=== PATIENT | female | born 1985 | race African-American/Black ===

== ENCOUNTER 2017-08-01 23:30 | Emergency (ER) | payer SELFPAY ==
[2017-08-01 23:53] LABS: ADD MAN DIFF? NO
[2017-08-01 23:55] LABS: BASO # 0.1 x10^3/uL (0.0-0.2); BASO % 1 % (0-3); EOS # 0.2 x10^3/uL (0.0-0.7); EOS % 2 % (0-3); HEMOGLOBIN 11.8 g/dL (12.0-15.5); LYMPH % 35 % (24-48); MEAN CORPUSCULAR HEMOGLOBIN 25 pg (25-35); MEAN CORPUSCULAR HGB CONC 33 g/dL (31-37); MEAN CORPUSCULAR VOLUME 76 fL (79-100); MONO # 0.7 x10^3/uL (0.0-1.1); MONO % 7 % (0-9); NEUT # 6.5 x10^3uL (1.8-7.7); NEUT % 56 % (31-73); PLATELET COUNT 412 x10^3/uL (140-400); RED BLOOD COUNT 4.75 x10^6/uL (3.50-5.40); RED CELL DISTRIBUTION WIDTH 15.8 % (11.5-14.5); WHITE BLOOD COUNT 11.5 x10^3/uL (4.0-11.0)
[2017-08-02 00:04] LABS: ANION GAP 12 (6-14); BLOOD UREA NITROGEN 11 mg/dL (7-20); CALCIUM 8.9 mg/dL (8.5-10.1); CARBON DIOXIDE 24 mmol/L (21-32); CHLORIDE 103 mmol/L (98-107); CREATININE 0.7 mg/dL (0.6-1.0); GFR 117.3; GLUCOSE 94 mg/dL (70-99); SODIUM 139 mmol/L (136-145)
[2017-08-02 00:09] LABS: D-DIMER < 0.27 ug/mlFEU (0.00-0.50)
[2017-08-02] MEDS: IV NORMAL SALINE 1000ML BAG 1,000 ML IV (00:12)
[2017-08-02 00:13] LABS: POTASSIUM 2.9 mmol/L (3.5-5.1)
[2017-08-02 00:15] LABS: TROPONINI < 0.017 ng/mL (0.000-0.055)
[2017-08-02] MEDS: POTASSIUM CHLORIDE 20 MEQ TABLET.ER. PO (00:35)
== END 2017-08-02 03:15 | disposition home or self-care (01) ==
LOC: ER 08-02 03:15
DX: F41.9 Anxiety disorder, unspecified (principal); I10 Essential (primary) hypertension; F12.10 Cannabis abuse, uncomplicated; Z88.6 Allergy status to analgesic agent
CPT/HCPCS: 36415; 80048; 84484; 85025; 85379; 93005; 96374; 99285-25; J2060; J7030

== ENCOUNTER 2018-05-12 21:49 | Emergency (ER) | payer OTHER ==
[~2018-05-12] VITALS: Ht 162.6 cm; Wt 113.4 kg
[~2018-05-12 21:49] MED LIST: HYDR25TA PO; LISI1TAB3 PO
[2018-05-12 22:00] VITALS: BP 174/109
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
== END 2018-05-13 | disposition home or self-care (01) ==
LOC: ER 21:49
DX: M54.5 Low back pain (principal); M79.642 Pain in left hand; Z88.8 Allergy status to other drugs, medicaments and biological substances; V43.52XA Car driver injured in collision with other type car in traffic accident, initial encounter; Y93.89 Activity, other specified; Y92.410 Unspecified street and highway as the place of occurrence of the external cause; Y99.8 Other external cause status
CPT/HCPCS: 72100; 73130; 99283

== ENCOUNTER 2021-01-14 14:13 | Emergency (ER) | payer SELFPAY ==
[~2021-01-14] VITALS: Ht 162.6 cm; Wt 136.3 kg
[~2021-01-14 14:13] MED LIST changes: -LISI1TAB3 PO; +LISI1TAB35 PO
--- NOTE | 2021-01-14 15:00 | PHYS DOC ---
Past Medical History Past Medical History: No Pertinent History Additional Past Medical Histor: FIBROIDS Past Surgical History: Other Additional Past Surgical Histo: Ovarian cyst removed Smoking Status: Never Smoker Alcohol Use: Occasionally Drug Use: None General Adult EDM: Chief Complaint: ABDOMINAL PAIN HPI: HPI: Patient is a 35-year-old female that presents today with right upper right mi ddle abdominal pain for 1 week. Patient also states that over the weekend she had bouts of nausea and heartburn and had one episode of vomiting. Patient states that over the week she has had more increased pain in the upper abdomen area mostly on the middle, she states in the past she has had history of heartburn is treated that with [id number] Tums, but today she states ate a meal. Patient states that today after her meal she had a bowel movement with very loose and she had upper abdominal pain related to it. Review of Systems: Review of Systems: Constitutional: Denies fever or chills. [] Eyes: Denies change in visual acuity. [] HENT: Denies nasal congestion or sore throat. [] Respiratory: Denies cough or shortness of breath. [] Cardiovascular: Denies chest pain or edema. [] GI: upper abdominal pain, nausea, vomiting x1, hearburn or diarrhea. [] : Denies dysuria. [] Musculoskeletal: Denies back pain or joint pain. [] Integument: Denies rash. [] Neurologic: Denies headache, focal weakness or sensory changes. [] Endocrine: Denies polyuria or polydipsia. [] Lymphatic: Denies swollen glands. [] Psychiatric: Denies depression or anxiety. [] Heart Score: C/O Chest Pain: N/A Risk Factors: Risk Factors: DM, Current or recent (<one month) smoker, HTN, HLP, family history of CAD, obesity. Risk Scores: Score 0 - 3: 2.5% MACE over next 6 weeks - Discharge Home Score 4 - 6: 20.3% MACE over next 6 weeks - Admit for Clinical Observation Score 7 - 10: 72.7% MACE over next 6 weeks - Early Invasive Strategies Allergies: Allergies: Allergies Coded Allergies Type Severity Reaction Last Updated Verified NSAIDS (Non-Steroidal Anti-Inflamma Allergy Unknown 11/08/13 No Physical Exam: PE: Constitutional: Well developed, well nourished, no acute distress, non-toxic appearance. [] HENT: Normocephalic, atraumatic, bilateral external ears normal, oropharynx moist, no oral exudates, nose normal. [] Eyes: PERRLA, EOMI, conjunctiva normal, no discharge. [] Neck: Normal range of motion, no tenderness, supple, no stridor. [] Cardiovascular:Heart rate regular rhythm, no murmur [] Lungs & Thorax: Bilateral breath sounds clear to auscultation [] Abdomen: Abdomen soft, tenderness noted in right upper quadrant, middle and left upper quadrant of the abdomen. Bowel sounds active in all 4 quadrants, Skin: Warm, dry, no erythema, no rash. [] Back: No tenderness, no CVA tenderness. [] Extremities: No tenderness, no cyanosis, no clubbing, ROM intact, no edema. [] Neurologic: Alert and oriented X 3, normal motor function, normal sensory function, no focal deficits noted. [] Psychologic: Affect normal, judgement normal, mood normal. [] Current Patient Data: Labs: Laboratory Tests Test 01/14/21 14:50 01/14/21 16:05 White Blood Count 9.1 x10^3/uL Red Blood Count 4.81 x10^6/uL Hemoglobin 11.2 g/dL Hematocrit 35.4 % Mean Corpuscular Volume 74 fL Mean Corpuscular Hemoglobin 23 pg Mean Corpuscular Hemoglobin Concent 32 g/dL Red Cell Distribution Width 17.4 % Platelet Count 379 x10^3/uL Neutrophils (%) (Auto) 63 % Lymphocytes (%) (Auto) 29 % Monocytes (%) (Auto) 5 % Eosinophils (%) (Auto) 2 % Basophils (%) (Auto) 1 % Neutrophils # (Auto) 5.7 x10^3/uL Lymphocytes # (Auto) 2.6 x10^3/uL Monocytes # (Auto) 0.5 x10^3/uL Eosinophils # (Auto) 0.2 x10^3/uL Basophils # (Auto) 0.1 x10^3/uL Sodium Level 139 mmol/L Potassium Level 3.8 mmol/L Chloride Level 103 mmol/L Carbon Dioxide Level 27 mmol/L Anion Gap 9 Blood Urea Nitrogen 9 mg/dL Creatinine 0.7 mg/dL Estimated GFR (Cockcroft-Gault) 115.2 BUN/Creatinine Ratio 13 Glucose Level 91 mg/dL Calcium Level 8.5 mg/dL Total Bilirubin 0.5 mg/dL Aspartate Amino Transf (AST/SGOT) 8 U/L Alanine Aminotransferase (ALT/SGPT) 16 U/L Alkaline Phosphatase 68 U/L Total Protein 7.1 g/dL Albumin 3.3 g/dL Albumin/Globulin Ratio 0.9 Lipase 58 U/L Serum Test, Qualitative Negative Urine Collection Type Unknown Urine Color Yellow Urine Clarity Clear Urine pH 7.0 Urine Specific [place] 1.020 Urine Protein Negative mg/dL Urine Glucose (UA) Negative mg/dL Urine Ketones (Stick) Negative mg/dL Urine Blood Negative Urine Nitrite Negative Urine Bilirubin Negative Urine Urobilinogen Dipstick 1.0 mg/dL Urine Leukocyte Esterase Small Urine RBC 0 /HPF Urine WBC 1-4 /HPF Urine Squamous Epithelial Cells Mod /LPF Urine Bacteria Few /HPF Urine Mucus Slight /LPF Vital Signs: Vital Signs Date Time Temp Pulse Resp B/P (MAP) Pulse Ox O2 Delivery O2 Flow Rate FiO2 01/14/21 14:16 98.8 83 18 193/94 (127) 99 Room Air 98.8 EKG: EKG: [] Radiology/Procedures: Radiology/Procedures: REASON: upper abdominal pain PROCEDURE: ABDOMEN COMPLETE EXAMINATION: US ABDOMEN COMPLETE INDICATION: 35 years, Female, upper abdominal pain. COMPARISON: None TECHNIQUE: Grayscale, color Doppler and limited spectral Doppler images of the abdomen were obtained. FINDINGS: LIVER: SIZE (LENGTH): 18.6 cm. ECHOGENICITY: Normal. PARENCHYMA: Homogeneous echotexture. No discrete focal lesion. INTRAHEPATIC BILE DUCTS: Nondilated. PORTAL VEIN: Patent with normal hepatopedal flow. GALLBLADDER: GALLBLADDER WALL THICKNESS: 2 mm. MORPHOLOGY: Normal morphology. No pericholecystic free fluid. LUMEN: Normal. COMMON BILE DUCT DIAMETER: 6 mm. RIGHT KIDNEY: MEASURES: 12.5 cm in length. MORPHOLOGY/PARENCHYMA: Normal corticomedullary differentiation with no shadowing calculus or discrete masses. COLLECTING SYSTEM: No hydronephrosis. LEFT KIDNEY: MEASURES: 12.5 cm in length MORPHOLOGY/PARENCHYMA: Normal corticomedullary differentiation with no shadowing calculus or discrete masses. COLLECTING SYSTEM: No hydronephrosis. SPLEEN: SIZE (LENGTH): 12.2 cm PARENCHYMA: Unremarkable. PANCREAS: VISUALIZED PORTIONS: Entire. APPEARANCE: Within normal limits. OTHER: RETROPERITONEUM, INFERIOR VENA CAVA: Normal caliber. AORTA: Normal caliber measures 1.9 cm. FLUID:No free fluid. IMPRESSION: Normal abdominal ultrasound. Electronically signed by: Santiago Bell MD (01/14/2021 3:44 PM) [facility] DICTATED and SIGNED BY: SANTIAGO BELL MD DATE: 01/14/21 [id number] 0 [] Course & Med Decision Making: Course & Med Decision Making Pertinent Labs and Imaging studies reviewed. (See chart for details) 1645 spoke to patient at length regarding test results, feel this is more gastritis related and not gallbladder disease. Instructed patient to not drink alcohol avoid nonsteroidal anti-inflammatories, avoid fatty food, caffeinated beverages as well. Will order Prilosec 20 mg daily, directed patient to follow- up with primary care also given list of clinics and physicians in the area to follow-up with as well. Patient states that she needs to establish primary care she is new to the area.] Dragon Disclaimer: Dragon Disclaimer: This electronic medical record was generated, in whole or in part, using a voice recognition dictation system. Departure Departure Impression: Primary Impression: Gastritis Qualified Codes: K29.00 - Acute gastritis without bleeding Disposition: HOME / SELF CARE / HOMELESS Condition: STABLE Referrals: NO PCP (PCP) REMBERTO SCHILLING MD Patient Instructions: Gastritis, Adult Additional Instructions: Avoid alcohol, smoking, and caffeine Prilosec 20 mg once daily Follow-up with primary care physician for management of blood pressure and possible referral to a GI specialist, list has been provided of clinics and primary care physicians in the area Return to the emergency department if you notice blood in your vomit, blood in your stool, inability to swallow your own saliva, your skin becomes yellow in color or any other concerns that you may have. Scripts Omeprazole (OMEPRAZOLE) 20 Mg Tablet. 20 MG PO DAILY for GASTRITIS, #30 TAB Prov: CHRISTIANO ROSS UNIVERSITY ARCHIVIST 01/14/21 CHRISTIANO ROSS UNIVERSITY ARCHIVIST Jan 14, 2021 15:00
[2021-01-14 15:02] LABS: BASO # 0.1 x10^3/uL (0.0-0.2); BASO % 1 % (0-3); EOS # 0.2 x10^3/uL (0.0-0.7); EOS % 2 % (0-3); HEMATOCRIT 35.4 % (36.0-47.0); HEMOGLOBIN 11.2 g/dL (12.0-15.5); LYMPH # 2.6 x10^3/uL (1.0-4.8); LYMPH % 29 % (24-48); MEAN CORPUSCULAR HEMOGLOBIN 23 pg (25-35); MEAN CORPUSCULAR HGB CONC 32 g/dL (31-37); MEAN CORPUSCULAR VOLUME 74 fL (79-100); MONO # 0.5 x10^3/uL (0.0-1.1); MONO % 5 % (0-9); NEUT # 5.7 x10^3/uL (1.8-7.7); NEUT % 63 % (31-73); PLATELET COUNT 379 x10^3/uL (140-400); RED BLOOD COUNT 4.81 x10^6/uL (3.50-5.40); RED CELL DISTRIBUTION WIDTH 17.4 % (11.5-14.5); WHITE BLOOD COUNT 9.1 x10^3/uL (4.0-11.0)
[2021-01-14 15:11] LABS: PREG TEST PT QUAL NEGATIVE (NEG)
[2021-01-14 15:12] LABS: CALCIUM 8.5 mg/dL (8.5-10.1); CREATININE 0.7 mg/dL (0.6-1.0); GFR 115.2; POTASSIUM 3.8 mmol/L (3.5-5.1)
[2021-01-14 15:18] LABS: ALBUMIN 3.3 g/dL (3.4-5.0); ALBUMIN/GLOBULIN RATIO 0.9 (1.0-1.7); TOTAL BILIRUBIN 0.5 mg/dL (0.2-1.0); TOTAL PROTEIN 7.1 g/dL (6.4-8.2)
--- NOTE | 2021-01-14 15:46 | RAD ---
EXAMINATION: US ABDOMEN COMPLETE INDICATION: 35 years, Female, upper abdominal pain. COMPARISON: None TECHNIQUE: Grayscale, color Doppler and limited spectral Doppler images of the abdomen were obtained. FINDINGS: LIVER: SIZE (LENGTH): 18.6 cm. ECHOGENICITY: Normal. PARENCHYMA: Homogeneous echotexture. No discrete focal lesion. INTRAHEPATIC BILE DUCTS: Nondilated. PORTAL VEIN: Patent with normal hepatopedal flow. GALLBLADDER: GALLBLADDER WALL THICKNESS: 2 mm. MORPHOLOGY: Normal morphology. No pericholecystic free fluid. LUMEN: Normal. COMMON BILE DUCT DIAMETER: 6 mm. RIGHT KIDNEY: MEASURES: 12.5 cm in length. MORPHOLOGY/PARENCHYMA: Normal corticomedullary differentiation with no shadowing calculus or discrete masses. COLLECTING SYSTEM: No hydronephrosis. LEFT KIDNEY: MEASURES: 12.5 cm in length MORPHOLOGY/PARENCHYMA: Normal corticomedullary differentiation with no shadowing calculus or discrete masses. COLLECTING SYSTEM: No hydronephrosis. SPLEEN: SIZE (LENGTH): 12.2 cm PARENCHYMA: Unremarkable. PANCREAS: VISUALIZED PORTIONS: Entire. APPEARANCE: Within normal limits. OTHER: RETROPERITONEUM, INFERIOR VENA CAVA: Normal caliber. AORTA: Normal caliber measures 1.9 cm. FLUID:No free fluid. IMPRESSION: Normal abdominal ultrasound. Electronically signed by: Santiago Bell MD (01/14/2021 3:44 PM) [facility]
[2021-01-14 16:14] LABS: BILIRUBIN,URINE NEGATIVE (NEG); CLARITY,URINE CLEAR; COLOR,URINE YELLOW; NITRITE,URINE NEGATIVE (NEG); PROTEIN,URINE NEGATIVE (NEG-TRACE)
[2021-01-14 16:30] LABS: BACTERIA,URINE FEW /HPF (0-FEW); RBC,URINE 0 /HPF (0-2)
[2021-01-14] MEDS ORDERED: OMEP20TA8 PO (16:51)
[2021-01-14 17:00] VITALS: BP 186/98
== END 2021-01-14 17:00 | disposition home or self-care (01) ==
LOC: ER 14:13
DX: K29.00 Acute gastritis without bleeding (principal); Z88.6 Allergy status to analgesic agent
CPT/HCPCS: 36415; 76700; 80053; 81001; 83690; 84703; 85025; 87086; 99284

== ENCOUNTER 2021-04-20 15:35 | Inpatient (IN) | payer OTHER ==
[~2021-04-20] VITALS: Ht 162.6 cm; Wt 139.4 kg
[~2021-04-20 15:35] MED LIST changes: +OMEP20TA8 PO
[2021-04-20] MEDS ORDERED: DEXAMETHASONE 4 MG TABLET PO ONE (16:00)
[2021-04-20] MEDS ORDERED: IPRATRPIUM/ALBUTEROL 0.5/2.5MG 3 ML NEBU. NEB ONE (16:00)
[2021-04-20] MEDS ORDERED: LISINOPRIL 10 MG TABLET PO ONE (16:00)
[2021-04-20] MEDS ORDERED: IV NORMAL SALINE 1000ML BAG 1,000 ML IV SCH (16:00)
--- NOTE | 2021-04-20 16:05 | PHYS DOC ---
Past Medical History Past Medical History: No Pertinent History Additional Past Medical Histor: FIBROIDS Past Surgical History: Other Additional Past Surgical Histo: Ovarian cyst removed Smoking Status: Never Smoker Alcohol Use: Occasionally Drug Use: None General Adult EDM: Chief Complaint: CHEST PAIN HPI: HPI: Patient is a 35 year old female who presents with 1 week of shortness of breath , cough, chest pain that is a burning that is goes from her throat all the way down into her lungs. Patient rates the pain 8 out of 10. She states she is been taking [id number] Robitussin. She states she supposed to be on lisinopril but has not taken it for a year. She states she is supposed to be taking 10 mg. 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 Patient denies dizziness, headache, fever, nausea, vomiting, diarrhea, numbness or tingling, vision change, focal weakness, extremity swelling. Review of Systems: Review of Systems: Constitutional: Denies fever or chills. [] Eyes: Denies change in visual acuity. [] HENT: Denies nasal congestion or sore throat. [] Respiratory: + cough or +shortness of breath. [] Cardiovascular: + chest pain or denies edema. [] GI: Denies abdominal pain, nausea, vomiting, bloody stools or diarrhea. [] : Denies dysuria. [] Musculoskeletal: Denies back pain or joint pain. [] Integument: Denies rash. [] Neurologic: Denies headache, focal weakness or sensory changes. [] Endocrine: Denies polyuria or polydipsia. [] Lymphatic: Denies swollen glands. [] Psychiatric: Denies depression or anxiety. [] Heart Score: C/O Chest Pain: Yes HEART Score for Chest Pain: HEART Score for Chest Pain Response (Comments) Value History Slighlty/Non-Suspicious 0 ECG Normal 0 Risk Factors 1 or 2 Risk Factors 1 Troponin < Normal Limit 0 Total 1 Risk Factors: Risk Factors: DM, Current or recent (<one month) smoker, HTN, HLP, family history of CAD, obesity. Risk Scores: Score 0 - 3: 2.5% MACE over next 6 weeks - Discharge Home Score 4 - 6: 20.3% MACE over next 6 weeks - Admit for Clinical Observation Score 7 - 10: 72.7% MACE over next 6 weeks - Early Invasive Strategies Allergies: Allergies: Allergies Coded Allergies Type Severity Reaction Last Updated Verified NSAIDS (Non-Steroidal Anti-Inflamma Allergy Unknown 11/08/13 No Physical Exam: PE: Constitutional: Well developed, well nourished, no acute distress, non-toxic appearance. [] HENT: Normocephalic, atraumatic, bilateral external ears normal, oropharynx moist, no oral exudates, nose normal. [] Eyes: PERRLA, EOMI, conjunctiva normal, no discharge. [] Neck: Normal range of motion, no tenderness, supple, no stridor. [] Cardiovascular:Heart rate regular rhythm, no murmur [] Lungs & Thorax: Bilateral upper breath sounds clear and lower diminished to auscultation [] Abdomen: Bowel sounds normal, soft, no tenderness, no masses, no pulsatile masses. [] Skin: Warm, dry, no erythema, no rash. [] Back: No tenderness, no CVA tenderness. [] Extremities: No tenderness, no cyanosis, no clubbing, ROM intact, no edema. [] Neurologic: Alert and oriented X 3, normal motor function, normal sensory function, no focal deficits noted. [] Psychologic: Affect normal, judgement normal, mood normal. [] Current Patient Data: Vital Signs: Vital Signs Date Time Temp Pulse Resp B/P (MAP) Pulse Ox O2 Delivery O2 Flow Rate FiO2 04/20/21 15:42 99.5 91 23 201/107 (138) 99 Room Air 99.5 EKG: EK and read by Dr. Hearn is a sinus rhythm and no STEMI [address] Jacinto as Sinus Rhythm and no STEMI Radiology/Procedures: Radiology/Procedures: [] Impression: [facility] [address] [place], [place] [id number] IMAGING REPORT Signed PATIENT: RYNE DOS SANTOS ACCOUNT: [id number] : 1985 LOCATION: ER AGE: 35 SEX: F EXAM STATUS: PRE ER ORD. PHYSICIAN: JACQUIE GROSS APRN REASON: soa, cough, chest pain PROCEDURE: PORTABLE CHEST 1V EXAM: CHEST 1 VIEW History: Shortness of breath, cough COMPARISON: 11/08/2013. TECHNIQUE: Single portable radiograph of the chest FINDINGS: The cardiac silhouette is unremarkable. Faint airspace opacities identified in the bilateral lungs likely atelectasis or infiltrates. The costophrenic sulci are clear and well demarcated. IMPRESSION: Faint airspace opacities identified in the bilateral lungs likely atelectasis or infiltrates. Electronically signed by: Shaheed Baltazar MD (04/20/2021 4:53 PM) [id number] DICTATED and SIGNED BY: SHAHEED BALTAZAR MD DATE: 04/20/21 [id number] 0 Course & Med Decision Making: Course & Med Decision Making Pertinent Labs and Imaging studies reviewed. (See chart for details) COVID-19 CRITERIA: The patient was evaluated during the global COVID-19 pandemic, and that diagnosis was suspected/considered upon their initial presentation. Their evaluation, treatment and testing was consistent with current guidelines for patients who present with complaints or symptoms that may be related to COVID-19. See HPI. Alert and oriented x4. Ambulatory steady gait. Skin pink warm and dry. Bilateral upper lobes are clear and lower lobes are diminished. She states she is been coughing up green sputum. EKG shows a sinus rhythm and no STEMI. Chest x-ray shows pneumonia or edema. Given she does have a white count, and she states that she is coughing up green mucus, she is given azithromycin and Rocephin in the ED. Heart rate is in the 90s, white blood cell count is 13. No end organ damage. Patient was given lisinopril for her hypertension in 200s over 100s. After 8-hour patient's blood pressure only went down to 190s over 110's. Patient's blood pressure then went up too 216/105. Patient was given hydralazine 10 mg IV. Patient's blood pressure again went down to only 190/118. Patient's BNP is elevated but I do not have a previous BNP to compare. I called Dr. Fagan for admission. He states to go ahead and give Lasix 40 mg IV and Nitro-Bid paste 1 inch. [] Dragon Disclaimer: Dragon Disclaimer: This electronic medical record was generated, in whole or in part, using a voice recognition dictation system. COVID-19 Patient Risks: Age 65 or older: No Sign of co-morbidity: Yes Exp to person + for COVID: No Exp to PUI: No Travel from affected area: No Lower respiratory symptoms: Yes Fever: No Other: No Departure Departure Impression: Primary Impression: Pneumonia Qualified Codes: J18.9 - Pneumonia, unspecified organism Additional Impressions: Person under investigation for COVID-19 Hypertensive emergency Disposition: ADMITTED INPATIENT Admitting Physician: RUPINDER Condition: STABLE Referrals: NO PCP (PCP) JACQUIE GROSS APRN Apr 20, 2021 16:05
[2021-04-20 16:32] LABS: BASO # 0.1 x10^3/uL (0.0-0.2); BASO % 1 % (0-3); EOS # 0.2 x10^3/uL (0.0-0.7); EOS % 2 % (0-3); HEMATOCRIT 33.7 % (36.0-47.0); HEMOGLOBIN 10.6 g/dL (12.0-15.5); LYMPH # 3.4 x10^3/uL (1.0-4.8); LYMPH % 26 % (24-48); MEAN CORPUSCULAR HEMOGLOBIN 23 pg (25-35); MEAN CORPUSCULAR HGB CONC 32 g/dL (31-37); MEAN CORPUSCULAR VOLUME 73 fL (79-100); MONO # 0.8 x10^3/uL (0.0-1.1); MONO % 6 % (0-9); NEUT # 8.6 x10^3/uL (1.8-7.7); NEUT % 66 % (31-73); PLATELET COUNT 442 x10^3/uL (140-400); RED BLOOD COUNT 4.64 x10^6/uL (3.50-5.40); RED CELL DISTRIBUTION WIDTH 16.2 % (11.5-14.5); WHITE BLOOD COUNT 13.1 x10^3/uL (4.0-11.0)
[2021-04-20 16:34] LABS: BILIRUBIN,URINE NEGATIVE (NEG); CLARITY,URINE CLEAR; COLOR,URINE YELLOW; NITRITE,URINE NEGATIVE (NEG); PH,URINE 5.5 (<5.0-8.0); PROTEIN,URINE NEGATIVE (NEG-TRACE); UROBILINOGEN,URINE 0.2 mg/dL (0.2 mg/dL)
[2021-04-20 16:39] LABS: BACTERIA,URINE FEW /HPF (0-FEW); RBC,URINE 0 /HPF (0-2); WBC,URINE OCC /HPF (0-4)
[2021-04-20 16:43] LABS: CALCIUM 8.3 mg/dL (8.5-10.1); CREATININE 0.7 mg/dL (0.6-1.0); GFR 115.2; POTASSIUM 3.9 mmol/L (3.5-5.1)
[2021-04-20 16:49] LABS: ALBUMIN 3.1 g/dL (3.4-5.0); ALBUMIN/GLOBULIN RATIO 0.7 (1.0-1.7); MAGNESIUM 1.7 mg/dL (1.8-2.4); TOTAL BILIRUBIN 0.1 mg/dL (0.2-1.0); TOTAL PROTEIN 7.3 g/dL (6.4-8.2)
--- NOTE | 2021-04-20 16:56 | RAD ---
EXAM: CHEST 1 VIEW History: Shortness of breath, cough COMPARISON: 11/08/2013. TECHNIQUE: Single portable radiograph of the chest FINDINGS: The cardiac silhouette is unremarkable. Faint airspace opacities identified in the bilater al lungs likely atelectasis or infiltrates. The costophrenic sulci are clear and well demarcated. IMPRESSION: Faint airspace opacities identified in the bilateral lungs likely atelectasis or infiltrates. Electronically signed by: Shaheed Baltazar MD (04/20/2021 4:53 PM) [id number]
[2021-04-20] MEDS ORDERED: cefTRIAXone IV Push 1 GM VIAL. IVP ONE (17:30)
[2021-04-20] MEDS ORDERED: MAGNESIUM SULFATE 2GM 50 ML IV ONE (17:30)
[2021-04-20] MEDS ORDERED: AZITHROMYCIN 500 MG in IV NORMAL SALINE 250ML 250 ML IV ONE (18:00)
[2021-04-20] MEDS ORDERED: hydrALAZINE 20 MG/ML VIAL. IVP ONE (18:45)
[2021-04-20] MEDS ORDERED: FUROSEMIDE 40 MG/4 ML VIAL. IVP ONE (19:45)
[2021-04-20] MEDS ORDERED: NITROGLYCERIN OINT 1 GM PACKET. TP ONE (19:45)
[2021-04-20] MEDS ORDERED: HYDROcodone/APAP 5/325MG 1 TAB TABLET PO ONE (21:00)
[2021-04-20] MEDS ORDERED: ENALAPRILAT 1.25 MG/ML VIAL. IVP ONE (21:30)
[2021-04-20] MEDS ORDERED: ONDANSETRON PF 4 MG/2 ML VIAL. IVP PRN (21:45)
[2021-04-20] MEDS: HEPARIN for SUB-Q USE 5,000 UNIT/ML VIAL. SQ SCH (22:00)
[2021-04-21] VITALS (10 sets, daily range): BP systolic 155–217; BP diastolic 83–114
--- NOTE | 2021-04-21 00:35 | NUR ---
Pt arrived to unit per cart pt ambulated to bed tele monitor applied vss obtained and stable assessment completed poc explained pt c/o of headache will medicate pt. Call light placed in reach.
[2021-04-21] MEDS: NITROGLYCERIN OINT 1 GM PACKET. TP SCH ×4 (01:05→18:00)
[2021-04-21] MEDS: guaiFENesin DM 200MG/20MG 10 ML SYRUP PO PRN (01:05)
[2021-04-21] MEDS: ACETAMINOPHEN 325 MG TABLET. PO PRN ×4 (01:05→22:36)
[2021-04-21] MEDS: HEPARIN for SUB-Q USE 5,000 UNIT/ML VIAL. SQ SCH ×3 (06:20→22:37)
--- NOTE | 2021-04-21 06:54 | EKG ---
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
--- NOTE | 2021-04-21 06:55 | EKG ---
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
--- NOTE | 2021-04-21 08:05 | PDOC1 ---
History and Physical Date of Admission Date of Admission DATE: 04/21/21 TIME: 07:58 Identification/Chief Complaint Chief Complaint Shortness of breath, cough Source Source: Patient History of Present Illness History of Present Illness Ms Clarke is a 35 year old female who presents with 1 week of shortness of breath, cough, chest pain that is a burning that is goes from her throat all the way down into her lungs. Patient rates the pain 8 out of 10. She states she is been taking [id number] Robitussin. She states she supposed to be on lisinopril but has not taken it for a year. 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 She previously used an albuterol inhaler for asthma but she has not had one at home. Patient denies dizziness, headache, fever, nausea, vomiting, diarrhea, numbness or tingling, vision change, focal weakness, extremity swelling. After blood pressure coming down her chest pain improved but still has a headache now it is worse today. She notes some numbness and tingling that did radiate into her left arm she cannot tell if this is due to her IV thinks it predated IV insertion Labs with WBC 13.1, Hb 10.6, platelets 442, NA 140, K3.9, BUN 10, CR 0.7, glucose 93, calcium 8.3, magnesium 1.7, LFTs normal laboratory limits, lipase 69, albumin 3.1, urinalysis bland hCG negative, rapid COVID-19 negative. Chest radiograph faint bilateral airspace disease is possible infiltrates. EKG sinus rhythm rate of 89 bpm normal axis and intervals, QTC [address] elevations or TWI Past Medical History Renal/: Other (Uterine fibroids) Past Surgical History Past Surgical History: Other (Ovarian cyst) Family History Family History: High Cholestrol, Hypertension Social History Smoke: No ALCOHOL: social Drugs: None Current Problem List Problem List Problems Medical Problems: (1) Hypertensive emergency Status: Acute (2) Person under investigation for COVID-19 Status: Acute (3) Pneumonia Status: Acute Current Medications Current Medications Current Medications Sodium Chloride 1,000 ml @ 1,000 mls/hr Q1H IV Last administered on 04/20/21at 16:10; Start 04/20/21 at 16:00; Stop 04/20/21 at 16:59; Status DC Dexamethasone (Decadron) 10 mg 1X ONCE PO Last administered on 04/20/21 16:09; Start 04/20/21 at 16:00; Stop 04/20/21 at 16:02; Status DC Lisinopril (Prinivil) 10 mg 1X ONCE PO Last administered on 04/20/21 16:09; Start 04/20/21 at 16:00; Stop 04/20/21 at 16:02; Status DC Albuterol/ Ipratropium (Duoneb) 3 ml 1X ONCE NEB Last administered on 04/20/21 16:31; Start 04/20/21 at 16:00; Stop 04/20/21 at 16:02; Status DC Magnesium Sulfate 50 ml @ 25 mls/hr 1X ONCE IV Last administered on 04/20/21 18:26; Start 04/20/21 at 17:30; Stop 04/20/21 at 19:29; Status DC Azithromycin 500 mg/Sodium Chloride 250 ml @ 250 mls/hr 1X ONCE IV Last administered on 04/20/21 18:26; Start 04/20/21 at 18:00; Stop 04/20/21 at 18:59; Status DC Ceftriaxone Sodium (Rocephin) 1 gm 1X ONCE IVP Last administered on 04/20/21 18:20; Start 04/20/21 at 17:30; Stop 04/20/21 at 17:31; Status DC Hydralazine HCl (Apresoline Inj) 10 mg 1X ONCE IVP Last administered on 04/20/21at 18:45; Start 04/20/21 at 18:45; Stop 04/20/21 at 18:46; Status DC Nitroglycerin (Nitro-Bid Oint) 1 inch 1X ONCE TP Last administered on 04/20/21at 20:36; Start 04/20/21 at 19:45; Stop 04/20/21 at 19:50; Status DC Furosemide (Lasix) 40 mg 1X ONCE IVP Last administered on 04/20/21at 20:37; Start 04/20/21 at 19:45; Stop 04/20/21 at 19:50; Status DC Acetaminophen/ Hydrocodone Bitart (Lortab 5/325) 1 tab 1X ONCE PO Last administered on 04/20/21at 20:59; Start 04/20/21 at 21:00; Stop 04/20/21 at 21:01; Status DC Enalaprilat (Vasotec Inj) 1.25 mg 1X ONCE IVP Last administered on 04/20/21at 21:39; Start 04/20/21 at 21:30; Stop 04/20/21 at 21:32; Status DC Hydralazine HCl (Apresoline Inj) 10 mg PRN Q4HRS PRN IVP ELEVATED BP, SEE CMTS 2ND CHC; Start 04/20/21 at 21:45 Labetalol HCl (Normodyne Iv Push) 10 mg PRN Q2HR PRN IVP HYPERTENSION 1ST CHOICE; Start 04/20/21 at 21:45 Nitroglycerin (Nitro-Bid Oint) 1 inch Q6HRS TP Last administered on 04/21/21at 06:19; Start 04/21/21 at 00:00 Acetaminophen (Tylenol) 650 mg PRN Q6HRS PRN PO MILD PAIN / TEMP > 100.3'F Last administered on 04/21/21at 01:05; Start 04/20/21 at 21:45 Ondansetron HCl (Zofran) 4 mg PRN Q4HRS PRN IVP NAUSEA/VOMITING Last administered on 04/20/21at 22:00; Start 04/20/21 at 21:45 Guaifenesin (Robitussin Dm) 10 ml PRN Q6HRS PRN PO COUGH Last administered on 04/21/21at 01:05; Start 04/20/21 at 21:45 Heparin Sodium (Porcine) (Heparin Sodium) 5,000 unit Q8HRS SQ Last administered on 04/21/21at 06:20; Start 04/20/21 at 22:00 Active Scripts Active Lisinopril-Hctz 10-12.5 Mg Tab (Lisinopril/Hydrochlorothiazide) 1 Each Tablet 1 Tab PO DAILY Allergies Allergies: Coded Allergies: NSAIDS (Non-Steroidal Anti-Inflamma (Unverified Adverse Reaction, Unknown, 04/21/21) "MAKES MY STOMACH BLEED" ROS General: YES: Fatigue, Malaise; No: Chills, Night Sweats, Appetite, Other PSYCHOLOGICAL ROS: No: Anxiety, Behavioral Disorder, Concentration difficultie, Decreased libido, Depression, Disorientation, Hallucinations, Hostility, Irritablity, Memory difficulties, Mood Swings, Obsessive thoughts, Physical abuse, Sexual abuse, Sleep disturbances, Suicidal ideation, Other Eyes: No Blurry vision, No Decreased vision, No Double vision, No Dry eyes, No Excessive tearing, No Eye Pain, No Itchy Eyes, No Loss of vision, No Photophobia, No Scotomata, No Uses contacts, No Uses glasses, No Other HEENT: YES: Heacaches; No: Visual Changes, Hearing change, Nasal congestion, Nasal discharge, Oral lesions, Sinus pain, Sore Throat, Epistaxis, Sneezing, Snoring, Tinnitus, Vertigo, Vocal changes, Other ALLERGY AND IMMUNOLOGY: No: Hives, Insect Bite Sensitivity, Itchy/Watery Eyes, Nasal Congestion, Post Nasal Drip, Seasonal Allergies, Other Hematological and Lymphatic: No: Bleeding Problems, Blood Clots, Blood Transfusions, Brusing, Night Sweats, Pallor, Swollen Lymph Nodes, Other ENDOCRINE: No: Breast Changes, Galactorrhea, Hair Pattern Changes, Hot Flashes, Malaise/lethargy, Mood Swings, Palpitations, Polydipsia/polyuria, Skin Changes, Temperature Intolerance, Unexpected Weight Changes, Other Breast: No New/Changing Breast Lumps, No Nipple changes, No Nipple discharge, No Other Respiratory: YES: Cough, Orthopnea, Shortness of breath, SOB with excertion, Tachypnea, Wheezing; No: Hemoptysis, Pleuritic Pain, Sputum Changes, Stridor, Other Cardiovascular: yes Chest Pain, yes Palpitations, yes Orthopnea, yes Paroxysmal Noc. Dyspnea, yes Edema; No Lt Headedness, No Other Gastrointestinal: No Nausea, No Vomiting, No Abdominal Pain, No Diarrhea, No Constipation, No Melena, No Hematochezia, No Other Genitourinary: No Dysuria, No Frequency, No Incontinence, No Hematuria, No Retention, No Discharge, No Urgency, No Pain, No Flank Pain, No Other, No , No , No , No , No , No , No Musculoskeletal: No Gait Disturbance, No Joint Pain, No Joint Stiffness, No Joint Swelling, No Muscle Pain, No Muscular Weakness, No Pain In:, No Swelling In:, No Other Neurological: No Behavorial Changes, No Bowel/Bladder ControlChng, No Confusion, No Dizziness, No Gait Disturbance, No Headaches, No Impaired Coord/balance, No Memory Loss, No Numbness/Tingling, No Seizures, No Speech Problems, No Tremors, No Visual Changes, No Weakness, No Other Skin: No Dry Skin, No Eczema, No Hair Changes, No Lumps, No Mole Changes, No Mottling, No Nail Changes, No Pruritus, No Rash, No Skin Lesion Changes, No Other, No Acne Physical Exam General: Alert, Oriented X3, Cooperative, mild distress HEENT: Atraumatic, PERRLA, EOMI, Mucous membr. moist/pink Lungs: Other (Bibasilar crackles) Heart: S1S2, RRR, no thrills, no rubs, no gallops, no murmurs Abdomen: Normal bowel sounds, Soft, No tenderness, No hepatosplenomegaly, No masses Rectal Exam: not examined Extremities: No clubbing, No cyanosis, No edema, Normal pulses, No tenderness/swelling Skin: No rashes, No breakdown, No significant lesion Neuro: Normal gait, Normal speech, Strength at 5/5 X4 ext, Normal tone, Sensation intact, Cranial nerves 3-12 NL, Reflexes 2+ Psych/Mental Status: Mental status NL, Mood NL Vitals Vitals Vital Signs Date Time Temp Pulse Resp B/P (MAP) Pulse Ox O2 Delivery O2 Flow Rate FiO2 04/21/21 07:00 97.8 82 20 188/96 (126) 96 Room Air 97.8 04/20/21 23:41 2.0 Labs Labs Laboratory Tests Test 04/20/21 16:06 04/20/21 16:18 04/20/21 16:24 04/20/21 16:31 Urine Collection Type Unknown Urine Color Yellow Urine Clarity Clear Urine pH 5.5 (<5.0-8.0) Urine Specific [place] 1.010 (1.000-1.030) Urine Protein Negative mg/dL (NEG-TRACE) Urine Glucose (UA) Negative mg/dL (NEG) Urine Ketones (Stick) Negative mg/dL (NEG) Urine Blood Negative (NEG) Urine Nitrite Negative (NEG) Urine Bilirubin Negative (NEG) Urine Urobilinogen Dipstick 0.2 mg/dL (0.2 mg/dL) Urine Leukocyte Esterase Negative (NEG) Urine RBC 0 /HPF (0-2) Urine WBC Occ /HPF (0-4) Urine Squamous Epithelial Cells Mod /LPF Urine Bacteria Few /HPF (0-FEW) SARS-CoV-2 Antigen (Rapid) Negative (NEGATIVE) White Blood Count 13.1 x10^3/uL (4.0-11.0) Red Blood Count 4.64 x10^6/uL (3.50-5.40) Hemoglobin 10.6 g/dL (12.0-15.5) Hematocrit 33.7 % (36.0-47.0) Mean Corpuscular Volume 73 fL (79-100) Mean Corpuscular Hemoglobin 23 pg (25-35) Mean Corpuscular Hemoglobin Concent 32 g/dL (31-37) Red Cell Distribution Width 16.2 % (11.5-14.5) Platelet Count 442 x10^3/uL (140-400) Neutrophils (%) (Auto) 66 % (31-73) Lymphocytes (%) (Auto) 26 % (24-48) Monocytes (%) (Auto) 6 % (0-9) Eosinophils (%) (Auto) 2 % (0-3) Basophils (%) (Auto) 1 % (0-3) Neutrophils # (Auto) 8.6 x10^3/uL (1.8-7.7) Lymphocytes # (Auto) 3.4 x10^3/uL (1.0-4.8) Monocytes # (Auto) 0.8 x10^3/uL (0.0-1.1) Eosinophils # (Auto) 0.2 x10^3/uL (0.0-0.7) Basophils # (Auto) 0.1 x10^3/uL (0.0-0.2) Sodium Level 140 mmol/L (136-145) Potassium Level 3.9 mmol/L (3.5-5.1) Chloride Level 102 mmol/L (98-107) Carbon Dioxide Level 26 mmol/L (21-32) Anion Gap 12 (6-14) Blood Urea Nitrogen 10 mg/dL (7-20) Creatinine 0.7 mg/dL (0.6-1.0) Estimated GFR (Cockcroft-Gault) 115.2 BUN/Creatinine Ratio 14 (6-20) Glucose Level 93 mg/dL (70-99) Calcium Level 8.3 mg/dL (8.5-10.1) Magnesium Level 1.7 mg/dL (1.8-2.4) Total Bilirubin 0.1 mg/dL (0.2-1.0) Aspartate Amino Transf (AST/SGOT) 9 U/L (15-37) Alanine Aminotransferase (ALT/SGPT) 14 U/L (14-59) Alkaline Phosphatase 78 U/L (46-116) Troponin I High Sensitivity 12 ng/L (4-50) FU-Fgv-F-Type Natriuretic Peptide 508 pg/mL (0-124) Total Protein 7.3 g/dL (6.4-8.2) Albumin 3.1 g/dL (3.4-5.0) Albumin/Globulin Ratio 0.7 (1.0-1.7) Lipase 69 U/L (73-393) Bedside Urine HCG, Qualitative Hcg negative (Negative) Test 04/20/21 18:07 04/20/21 20:10 04/20/21 23:40 Lactic Acid Level 1.8 mmol/L (0.4-2.0) Troponin I High Sensitivity 12 ng/L (4-50) 7 ng/L (4-50) Laboratory Tests Test 04/20/21 16:06 04/20/21 16:18 04/20/21 16:24 04/20/21 16:31 Urine Collection Type Unknown Urine Color Yellow Urine Clarity Clear Urine pH 5.5 (<5.0-8.0) Urine Specific [place] 1.010 (1.000-1.030) Urine Protein Negative mg/dL (NEG-TRACE) Urine Glucose (UA) Negative mg/dL (NEG) Urine Ketones (Stick) Negative mg/dL (NEG) Urine Blood Negative (NEG) Urine Nitrite Negative (NEG) Urine Bilirubin Negative (NEG) Urine Urobilinogen Dipstick 0.2 mg/dL (0.2 mg/dL) Urine Leukocyte Esterase Negative (NEG) Urine RBC 0 /HPF (0-2) Urine WBC Occ /HPF (0-4) Urine Squamous Epithelial Cells Mod /LPF Urine Bacteria Few /HPF (0-FEW) SARS-CoV-2 Antigen (Rapid) Negative (NEGATIVE) White Blood Count 13.1 x10^3/uL (4.0-11.0) Red Blood Count 4.64 x10^6/uL (3.50-5.40) Hemoglobin 10.6 g/dL (12.0-15.5) Hematocrit 33.7 % (36.0-47.0) Mean Corpuscular Volume 73 fL (79-100) Mean Corpuscular Hemoglobin 23 pg (25-35) Mean Corpuscular Hemoglobin Concent 32 g/dL (31-37) Red Cell Distribution Width 16.2 % (11.5-14.5) Platelet Count 442 x10^3/uL (140-400) Neutrophils (%) (Auto) 66 % (31-73) Lymphocytes (%) (Auto) 26 % (24-48) Monocytes (%) (Auto) 6 % (0-9) Eosinophils (%) (Auto) 2 % (0-3) Basophils (%) (Auto) 1 % (0-3) Neutrophils # (Auto) 8.6 x10^3/uL (1.8-7.7) Lymphocytes # (Auto) 3.4 x10^3/uL (1.0-4.8) Monocytes # (Auto) 0.8 x10^3/uL (0.0-1.1) Eosinophils # (Auto) 0.2 x10^3/uL (0.0-0.7) Basophils # (Auto) 0.1 x10^3/uL (0.0-0.2) Sodium Level 140 mmol/L (136-145) Potassium Level 3.9 mmol/L (3.5-5.1) Chloride Level 102 mmol/L (98-107) Carbon Dioxide Level 26 mmol/L (21-32) Anion Gap 12 (6-14) Blood Urea Nitrogen 10 mg/dL (7-20) Creatinine 0.7 mg/dL (0.6-1.0) Estimated GFR (Cockcroft-Gault) 115.2 BUN/Creatinine Ratio 14 (6-20) Glucose Level 93 mg/dL (70-99) Calcium Level 8.3 mg/dL (8.5-10.1) Magnesium Level 1.7 mg/dL (1.8-2.4) Total Bilirubin 0.1 mg/dL (0.2-1.0) Aspartate Amino Transf (AST/SGOT) 9 U/L (15-37) Alanine Aminotransferase (ALT/SGPT) 14 U/L (14-59) Alkaline Phosphatase 78 U/L (46-116) Troponin I High Sensitivity 12 ng/L (4-50) BG-Ggr-P-Type Natriuretic Peptide 508 pg/mL (0-124) Total Protein 7.3 g/dL (6.4-8.2) Albumin 3.1 g/dL (3.4-5.0) Albumin/Globulin Ratio 0.7 (1.0-1.7) Lipase 69 U/L (73-393) Bedside Urine HCG, Qualitative Hcg negative (Negative) Test 04/20/21 18:07 04/20/21 20:10 04/20/21 23:40 Lactic Acid Level 1.8 mmol/L (0.4-2.0) Troponin I High Sensitivity 12 ng/L (4-50) 7 ng/L (4-50) Images Images Chest radiograph: FINDINGS: The cardiac silhouette is unremarkable. Faint airspace opacities identified in the bilateral lungs likely atelectasis or infiltrates. The costophrenic sulci are clear and well demarcated. IMPRESSION: Faint airspace opacities identified in the bilateral lungs likely atelectasis or infiltrates. VTE Prophylaxis Ordered VTE Prophylaxis Devices: Yes VTE Pharmacological Prophylaxi: Yes Assessment/Plan Assessment/Plan A/P: Hypertensive emergency - Improved slightly with IV meds. Will add amlodipine, cont nitropaste, lisinopril Shortness of breath -with bilateral opacities concerning for pulmonary edema -> Lasix with some improvement in her shortness of breath after large urine output this could be acute diastolic CHF due to hypertensive emergency. Acute diastolic CHF - due to above. Will get echo, consult cardiology. Telemetry. When symptomatically improved will need low dose BB, ASA, statin, cont lisinopril. Cardiology consulted Hypomagnesemia - replaced Morbid obesity - counseled on lifestyle modification.. Leukocytosis - not clearly due to pneumonia given improvement in symptoms with diuresis. Likely reactive due to steroid administration FEN - Cardiac diet PPX - lovenox FULL CODE Dispo - inpatient. Will f/u COVID 19 test results Justifications for Admission Other Justification CLIFTON BLAKE MD Apr 21, 2021 08:05
[2021-04-21] MEDS: hydrALAZINE 20 MG/ML VIAL. IVP PRN (08:23)
--- NOTE | 2021-04-21 08:33 | RAD ---
EXAM: Rivers scale and color Doppler renal artery sonogram. HISTORY: Hypertension. TECHNIQUE: Rivers scale and color Doppler sonographic imaging of the kidneys and renal arteries with sp ectral waveform analysis was performed. COMPARISON: None. FINDINGS: The kidneys are normal in size. No solid or cystic renal lesion is seen. There is no hydron ephrosis. There are normal peak systolic velocities within the renal arteries and normal renal artery to aorta velocity ratios. The bladder is not formally assessed. IMPRESSION: 1. Unremarkable grayscale evaluation of the kidneys. 2. No Doppler evidence of hemodynamically significant stenosis involving the renal arteries. Electronically signed by: Lizzie Sanders MD (04/21/2021 8:30 AM) [id number]
[2021-04-21 09:46] LABS: HEMATOCRIT 35.1 % (36.0-47.0); RED BLOOD COUNT 4.79 x10^6/uL (3.50-5.40); WHITE BLOOD COUNT 20.5 x10^3/uL (4.0-11.0)
[2021-04-21 10:10] LABS: CALCIUM 8.6 mg/dL (8.5-10.1); CREATININE 0.9 mg/dL (0.6-1.0); GFR 86.2; POTASSIUM 3.8 mmol/L (3.5-5.1)
[2021-04-21] MEDS ORDERED: ASA/APAP/CAFFEINE 250/250/65MG TABLET. PO PRN (10:30)
[2021-04-21] MEDS: FAMOTIDINE 20 MG TABLET. PO SCH ×2 (10:37→20:05)
[2021-04-21 12:37] LABS: BARBITURATES NEG (NEG); BENZODIAZEPINES NEG (NEG); CANNABINOIDS NEG (NEG); COCAINE NEG (NEG); METHADONE NEG (NEG); OPIATES NEG (NEG); PHENCYCLIDINE NEG (NEG)
[2021-04-21 12:38] LABS: AMPHETAMINE/METHAMPHETAMINE NEG (NEG)
--- NOTE | 2021-04-21 12:45 | NUR ---
SS following for discharge planning. SS reviewed pt chart and discussed with pt RN. Pt is from home and is currently on room air. Cardiology consulted. COVID19 negative. SS will continue to follow for discharge planning.
--- NOTE | 2021-04-21 13:01 | CARD ---
MR#: [id number] Date of Study: 04/21/2021 Ordering Physician: CLIFTON BALKE, Referring Physician: CLIFTON BLAKE, Tech: Alysa Gordillo [facility] APPROVED REPORT EXAM: Two-dimensional and M-mode echocardiogram with Doppler and color Doppler. Other Information Quality : Technically LimitedHR: 103bpm Rhythm : NSR INDICATION Dyspnea RISK FACTORS Hypertension Obesity 2D DIMENSIONS RVDd3.2 (2.9-3.5cm)Left Atrium(2D)5.1 (1.6-4.0cm) IVSd1.2 (0.7-1.1cm)Aortic Root(2D)3.2 (2.0-3.7cm) LVDd5.0 (3.9-5.9cm)LVOT Diameter2.3 (1.8-2.4cm) PWd1.3 (0.7-1.1cm)LVDs2.6 (2.5-4.0cm) FS (%) 47.0 %SV92.4 ml Aortic Valve AoV Peak Dewayne.204.2cm/sAoV VTI35.6cm AO Peak GR.16.7mmHgAO Mean GR.9mmHg Mitral Valve MV E Vqpvuavs12.1cm/sMV DECEL NMPH672ax MV A Yfhqjxnm42.2cm/sE/A Ratio0.9 Pulmonary Valve PV Peak Xxwbhanr318.8cm/s LEFT VENTRICLE The left ventricle is normal size. There is mild concentric left ventricular hypertrophy. The left ve ntricular systolic function is normal and the ejection fraction is within normal range. LV ejection fraction of 55 to 60% There is normal LV segmental wall motion. Transmitral Doppler flow pattern is G rade I-abnormal relaxation pattern. RIGHT VENTRICLE The right ventricle is normal size. There is normal right ventricular wall thickness. The right ventr icular systolic function is normal. ATRIA The left atrium size is normal. The right atrium size is normal. The interatrial septum is intact wit h no evidence for an atrial septal defect or patent foramen ovale as noted on 2-D or Doppler imaging. AORTIC VALVE The aortic valve is normal in structure and function. Doppler and Color Flow revealed no significant aortic regurgitation. There is no significant aortic valvular stenosis. MITRAL VALVE The mitral valve is normal in structure and function. There is no evidence of mitral valve prolapse. There is no mitral valve stenosis. Doppler and Color Flow revealed no mitral valve regurgitation note d. TRICUSPID VALVE The tricuspid valve is normal in structure and function. Doppler and Color Flow revealed no tricuspid valve regurgitation noted. There is no tricuspid valve stenosis. PULMONIC VALVE The pulmonary valve is normal in structure and function. Doppler and Color Flow revealed no pulmonic valvular regurgitation. GREAT VESSELS The aortic root is normal in size. The ascending aorta is normal in size. The IVC is normal in size a nd collapses >50% with inspiration. PERICARDIAL EFFUSION There is no evidence of significant pericardial effusion. Critical Notification Critical Value: No <Conclusion> The left ventricle is normal size. The left ventricular systolic function is normal and the ejection fraction is within normal range. LV ejection fraction of 55 to 60% There is normal LV segmental wall motion. There is mild concentric left ventricular hypertrophy. Doppler and Color Flow revealed no significant aortic regurgitation. There is no significant aortic valvular stenosis. Doppler and Color Flow revealed no mitral valve regurgitation noted. Doppler and Color Flow revealed no tricuspid valve regurgitation noted. Signed by : Bethel Goode MD Electronically Approved : 04/21/2021 13:00:48
[2021-04-21] MEDS: LABETALOL 20 MG/4 ML DISP.SYRIN. IVP PRN ×2 (15:28→17:58)
[2021-04-22] VITALS (10 sets, daily range): BP systolic 164–218; BP diastolic 94–110
[2021-04-22] MEDS: NITROGLYCERIN OINT 1 GM PACKET. TP SCH ×2 (05:44)
[2021-04-22] MEDS: HEPARIN for SUB-Q USE 5,000 UNIT/ML VIAL. SQ SCH ×3 (06:09→21:09)
[2021-04-22] MEDS: guaiFENesin DM 200MG/20MG 10 ML SYRUP PO PRN ×2 (06:38→21:09)
[2021-04-22] MEDS: ACETAMINOPHEN 325 MG TABLET. PO PRN ×2 (08:49→21:09)
[2021-04-22] MEDS: FAMOTIDINE 20 MG TABLET. PO SCH (08:49)
--- NOTE | 2021-04-22 09:19 | PDOC2 ---
MAYELA CALHOUN PAINTER DRUM 04/22/21 0919: CARDIAC CONSULT DATE OF CONSULT Date of Consult DATE: 04/22/21 TIME: 08:59 REASON FOR CONSULT Reason for Consult: Chest pain REFERRING PHYSICIAN Referring Physician: Dr. Fagan SOURCE Source: Chart review, Patient HISTORY OF PRESENT ILLNESS HISTORY OF PRESENT ILLNESS This is a 35 yo female who presented secondary to 1 week history of shortness of breath, cough, and chest pain. Reports burning pain that is goes from her throat all the way down into her lungs. Also reports some numbness and tingling down her left arm. AMI has been ruled out. Echocardiogram showed normal LV systolic function. No WMA. PAST MEDICAL HISTORY Cardiovascular: HTN Pulmonary: Asthma Psych: Anxiety PAST SURGICAL HISTORY Past Surgical History: No pertinent history FAMILY HISTORY Family History: High Cholestrol, Hypertension SOCIAL HISTORY Smoke: No ALCOHOL: social Drugs: None CURRENT MEDICATIONS CURRENT MEDICATIONS Current Medications Medications (Trade) Dose Ordered Sig/Edmond Route PRN Reason Start Time Stop Time Status Last Admin Dose Admin Famotidine (Pepcid) 20 mg BID PO 04/21/21 10:30 04/22/21 08:49 Amlodipine Besylate (Norvasc) 5 mg DAILY PO 04/21/21 10:30 04/22/21 08:49 ALLERGIES ALLERGIES: Coded Allergies: NSAIDS (Non-Steroidal Anti-Inflamma (Unverified Adverse Reaction, Unknown, 04/21/21) "MAKES MY STOMACH BLEED" ROS Review of System 14 point ROS conducted with pertinent positives noted above in HPI PHYSICAL EXAM General: Alert, Oriented X3, Cooperative, No acute distress HEENT: Atraumatic Lungs: Clear to auscultation Heart: Regular rate Abdomen: Soft, Other (obese) Extremities: No edema, Normal pulses Skin: No significant lesion Neuro: Normal speech, Sensation intact Psych/Mental Status: Mental status NL, Mood NL MUSCULOSKELETAL: Osteoarthritic changes both hands VITALS/I&O VITALS/I&O: Vital Signs Date Time Temp Pulse Resp B/P (MAP) Pulse Ox O2 Delivery O2 Flow Rate FiO2 04/22/21 08:49 86 174/96 04/22/21 03:30 98.6 16 98 Room Air 98.6 I & O 04/21/21 04/21/21 04/22/21 15:00 23:00 07:00 Intake Total 600 ml 400 ml 0 ml Output Total 600 ml 880 ml Balance 0 ml -480 ml 0 ml LABS Lab: Laboratory Tests Test 04/21/21 09:25 04/21/21 12:22 White Blood Count 20.5 x10^3/uL (4.0-11.0) H Red Blood Count 4.79 x10^6/uL (3.50-5.40) Hemoglobin 11.0 g/dL (12.0-15.5) L Hematocrit 35.1 % (36.0-47.0) L Mean Corpuscular Volume 73 fL (79-100) L Mean Corpuscular Hemoglobin 23 pg (25-35) L Mean Corpuscular Hemoglobin Concent 31 g/dL (31-37) Red Cell Distribution Width 17.0 % (11.5-14.5) H Platelet Count 506 x10^3/uL (140-400) H Sodium Level 137 mmol/L (136-145) Potassium Level 3.8 mmol/L (3.5-5.1) Chloride Level 99 mmol/L (98-107) Carbon Dioxide Level 26 mmol/L (21-32) Anion Gap 12 (6-14) Blood Urea Nitrogen 14 mg/dL (7-20) Creatinine 0.9 mg/dL (0.6-1.0) Estimated GFR (Cockcroft-Gault) 86.2 Glucose Level 149 mg/dL (70-99) H Calcium Level 8.6 mg/dL (8.5-10.1) Iron Level 20 ug/dL (50-170) L Total Iron Binding Capacity 285 ug/dL (250-450) Iron Saturation 7 % (15-34) L Thyroid Stimulating Hormone (TSH) 0.932 uIU/mL (0.358-3.74) Urine Opiates Screen Neg (NEG) Urine Methadone Screen Neg (NEG) Urine Barbiturates Neg (NEG) Urine Phencyclidine Screen Neg (NEG) Urine Amphetamine/Methamphetamine Neg (NEG) Urine Benzodiazepines Screen Neg (NEG) Urine Cocaine Screen Neg (NEG) Urine Cannabinoids Screen Neg (NEG) Urine Ethyl Alcohol Neg (NEG) Laboratory Tests 04/21/21 09:25 Laboratory Tests 04/21/21 09:25 ECHOCARDIOGRAM ECHOCARDIOGRAM <Conclusion> The left ventricle is normal size. The left ventricular systolic function is normal and the ejection fraction is within normal range. LV ejection fraction of 55 to 60% There is normal LV segmental wall motion. There is mild concentric left ventricular hypertrophy. Doppler and Color Flow revealed no significant aortic regurgitation. There is no significant aortic valvular stenosis. Doppler and Color Flow revealed no mitral valve regurgitation noted. Doppler and Color Flow revealed no tricuspid valve regurgitation noted. DATE: 04/21/21 [id number] ASSESSMENT/PLAN ASSESSMENT/PLAN 1. Chest pain, atypical. AMI ruled out. Echo with preserved LV systolic function. No WMA. If CP recurrent when cough resolves, could consider outpatient ischemic evaluation. 2. Leukocytosis 3. Hypertensive urgency; remains elevated. lisinopril discontinued. losartan and hydrochlorothiazide added. Increase amlodipine if BP remains elevated. 4. Dyspnea with acute mild diastolic CHF; improved s/p diuresis 5. Hypomagnesemia; replaced ANGELICA MORALES MD 04/22/21 1655: CARDIAC CONSULT ASSESSMENT/PLAN ASSESSMENT/PLAN Patient seen and evaluated. I agree with our nurse practitioners assessment and plan. Chest pain, atypical. AMI ruled out. Echo with preserved LV systolic function. No WMA. If CP recurrent when cough resolves, would consider outpatient ischemic evaluation. Hypertensive urgency; remains elevated. lisinopril discontinued. losartan and hydrochlorothiazide added. Increase amlodipine if BP remains elevated. Dyspnea with acute mild diastolic CHF; improved s/p diuresis Hypomagnesemia; replaced MAYELA CALHOUN APRN Apr 22, 2021 09:19 ANGELICA MORALES MD Apr 22, 2021 16:55
[2021-04-22] MEDS: LABETALOL 20 MG/4 ML DISP.SYRIN. IVP PRN ×2 (11:30→18:30)
[2021-04-22] MEDS ORDERED: LABETALOL 20 MG/4 ML DISP.SYRIN. IVP ONE (12:30)
[2021-04-22] MEDS ORDERED: LOSARTAN POTASSIUM 50 MG TABLET. PO SCH (12:30)
--- NOTE | 2021-04-22 12:38 | PDOC ---
[facility] PROGRESS NOTE Date of Service DOS: DATE: 04/22/21 TIME: 12:28 Chief Complaint Chief Complaint Hypertensive emergency - Improved slightly with IV meds. Will add amlodipine, cont nitropaste, lisinopril Shortness of breath -with bilateral opacities concerning for pulmonary edema -> Lasix with some improvement in her shortness of breath after large urine output this could be acute diastolic CHF due to hypertensive emergency. Acute diastolic CHF - due to above. Will get echo, consult cardiology. Telemetry. When symptomatically improved will need low dose BB, ASA, statin, cont lisinopril. Cardiology consulted Hypomagnesemia - replaced Morbid obesity - counseled on lifestyle modification.. Leukocytosis - not clearly due to pneumonia given improvement in symptoms with diuresis. Likely reactive due to steroid administration FEN - Cardiac diet PPX - lovenox FULL CODE Dispo - inpatient. History of Present Illness History of Present Illness Ms Clarke is a 35 year old female who presents with 1 week of shortness of breath, cough, chest pain that is a burning that is goes from her throat all the way down into her lungs. Patient rates the pain 8 out of 10. She states she is been taking [id number] Robitussin. She states she supposed to be on lisinopril but has not taken it for a year. She states she is supposed to be taking 10 mg but has been getting from her BAG PRESSER and has not had an appointment in follow-up. She previously used an albuterol inhaler for asthma but she has not had one at home. Patient denies dizziness, headache, fever, nausea, vomiting, diarrhea, numbness or tingling, vision change, focal weakness, extremity swelling. After blood pressure coming down her chest pain improved but still has a headache now it is worse today. She notes some numbness and tin gling that did radiate into her left arm she cannot tell if this is due to her IV thinks it predated IV insertion Labs with WBC 13.1, Hb 10.6, platelets 442, NA 140, K3.9, BUN 10, CR 0.7, glucose 93, calcium 8.3, magnesium 1.7, LFTs normal laboratory limits, lipase 69, albumin 3.1, urinalysis bland hCG negative, rapid COVID-19 negative. Chest radiograph faint bilateral airspace disease is possible infiltrates. EKG sinus rhythm rate of 89 bpm normal axis and intervals, QTC [address] elevations or TWI Consults: Cardiology 04/22: Blood pressure consistently above 180 systolic in the 110 diastolic. Still with left arm symptoms. Echocardiogram completed with no significant abnormalities and normal ejection fraction. She is cough overnight and still with headache but removing Nitropaste to improve that headache. Discussed addition of losartan and hydrochlorothiazide to discontinue lisinopril given her cough and will try a PPI for her GERD. Will need to have her diastolic below 110 prior to discharge Vitals/I&O Vitals/I&O: Vital Signs Date Time Temp Pulse Resp B/P (MAP) Pulse Ox O2 Delivery O2 Flow Rate FiO2 04/22/21 12:20 86 196/107 04/22/21 07:00 97.9 19 97 Room Air 97.9 I & O 0 04/21/21 04/21/21 04/22/21 15:00 23:00 07:00 Intake Total 600 ml 400 ml 0 ml Output Total 600 ml 880 ml Balance 0 ml -480 ml 0 ml Physical Exam General: Alert, Oriented X3, Cooperative, mild distress Abdomen: Normal bowel sounds, Soft, No tenderness, No hepatosplenomegaly, No masses Extremities: No clubbing, No cyanosis, No edema, Normal pulses, No tenderness/swelling Skin: No rashes, No breakdown, No significant lesion Labs Labs: Laboratory Tests Test 04/22/21 09:49 Troponin I High Sensitivity 29 ng/L (4-50) Assessment and Plan Assessmemt and Plan Problems Medical Problems: (1) Hypertensive emergency Status: Acute (2) Person under investigation for COVID-19 Status: Acute (3) Pneumonia Status: Acute Comment Review of Relevant I have reviewed the following items bennett (where applicable) has been applied. Medications: Current Medications Medications (Trade) Dose Ordered Sig/Edmond Route PRN Reason Start Time Stop Time Status Last Admin Dose Admin Labetalol HCl (Normodyne Iv Push) 10 mg 1X ONCE IVP 04/22/21 12:30 04/22/21 12:31 04/22/21 12:20 Justifications for Admission Other Justification CLIFTON BLAKE MD Apr 22, 2021 12:38
--- NOTE | 2021-04-22 12:39 | NUR ---
SS following up with discharge planning. SS reviewed pt chart and discussed with pt RN. Pt is from home and is currently on room air. COVID19 negative. Cardiology consulted. SS will continue to follow up with discharge planning.
[2021-04-22] MEDS: PANTOPRAZOLE 40 MG TABLET.DR. PO SCH (13:19)
[2021-04-22] MEDS: hydroCHLOROthiazide 25 MG TABLET PO SCH (13:19)
[2021-04-22] MEDS: hydrALAZINE 20 MG/ML VIAL. IVP PRN (17:32)
[2021-04-22] MEDS ORDERED: LOSARTAN POTASSIUM 50 MG TABLET. PO ONE (19:00)
[2021-04-22] MEDS ORDERED: diphenhydrAMINE HCL 25 MG CAPSULE PO PRN (19:15)
[2021-04-23 02:26] VITALS: BP 167/93
[2021-04-23] MEDS: HEPARIN for SUB-Q USE 5,000 UNIT/ML VIAL. SQ SCH ×2 (05:26→13:49)
[2021-04-23] MEDS: PANTOPRAZOLE 40 MG TABLET.DR. PO SCH (05:26)
[2021-04-23 07:00] VITALS: BP 163/104
--- NOTE | 2021-04-23 08:18 | PDOC ---
MAYELA CALHOUN CLEANING ASSOCIATE 04/23/21 0818: CARDIO Progress Notes Date and Time Date of Service 04/23/21 Time of Evaluation 1025 Subjective Subjective: No shortness of breath, No Palpitations, Other (c/p intermittent sharp pain in left chest. Left chest is tender upon palpation) Vitals Vitals Vital Signs Date Time Temp Pulse Resp B/P (MAP) Pulse Ox O2 Delivery O2 Flow Rate FiO2 04/23/21 07:00 97.8 82 20 163/104 (123) 96 Room Air 97.8 Weight Weight [ ] Input and Output Intake and Output Intake and Output 04/23/21 07:00 Intake Total 780 ml Output Total 2600 ml Balance -1820 ml Intake Oral 780 ml Output Urine Total 2600 ml # Voids 4 Laboratory Labs Laboratory Tests Test 04/22/21 09:49 Troponin I High Sensitivity 29 ng/L (4-50) Microbiology Micro Microbiology 04/20/21 Blood Culture - Preliminary, Resulted NO GROWTH AFTER 2 DAYS Physical Exam HEENT: Neck Supple W Full Motion Chest: Symmetric LUNGS: Clear to Auscultation Heart: S1S2, RRR Abdomen: Soft N/T Extremities: No Edema Neurology: alert, oriented, follow commands Assessment Assessment 1. Chest pain, atypical. AMI ruled out. Echo with preserved LV systolic function. No WMA. Most probably MSK in origin and is reproducible to palpation. If CP recurrent when cough resolves, could consider outpatient ischemic evaluation. 2. Leukocytosis 3. Hypertensive urgency; remains elevated. losartan and amlodipine increased. Home blood pressure monitoring 4. Dyspnea with acute mild diastolic CHF; improved s/p diuresis. clinically compensated 5. Hypomagnesemia; replaced Justicifation of Admission Dx: Justifications for Admission: Justification of Admission Dx: Yes Comments: hypertensive urgency Acute diastolic CHF Atypical chest pain ANGELICA MORALES MD 04/23/21 1510: CARDIO Progress Notes Assessment Assessment Patient seen and examined I agree with our nurse practitioners assessment and plan. Chest pain, atypical. AMI ruled out. Echo with preserved LV systolic function. No WMA. Most probably MSK in origin and is reproducible to palpation. Continue present treatment. Outpatient follow-up. If CP recurrent when cough resolves, could consider outpatient ischemic evaluation. Hypertensive urgency; improving. losartan and amlodipine increased. Home blood pressure monitoring Dyspnea with acute mild diastolic CHF; improved s/p diuresis. clinically compensated Hypomagnesemia; replaced Justicifation of Admission Dx: Justicifation of Admission Dx: Justifications for Admission: Justification of Admission Dx: Yes MAYELA CALHOUN APRN Apr 23, 2021 08:18 ANGELICA MORALES MD Apr 23, 2021 15:10
[2021-04-23] MEDS: hydroCHLOROthiazide 25 MG TABLET PO SCH (08:42)
[2021-04-23] MEDS ORDERED: LOSARTAN POTASSIUM 50 MG TABLET. PO SCH (09:00)
--- NOTE | 2021-04-23 09:08 | PDOC ---
[facility] PROGRESS NOTE Date of Service DOS: DATE: 04/23/21 TIME: 09:06 Chief Complaint Chief Complaint Hypertensive emergency - Improved slightly with IV meds. Will add amlodipine, cont nitropaste, lisinopril Shortness of breath -with bilateral opacities concerning for pulmonary edema -> Lasix with some improvement in her shortness of breath after large urine output this could be acute diastolic CHF due to hypertensive emergency. Acute diastolic CHF - due to above. Will get echo, consult cardiology. Telemetry. When symptomatically improved will need low dose BB, ASA, statin, cont lisinopril. Cardiology consulted Hypomagnesemia - replaced Morbid obesity - counseled on lifestyle modification.. Leukocytosis - not clearly due to pneumonia given improvement in symptoms with diuresis. Likely reactive due to steroid administration FEN - Cardiac diet PPX - lovenox FULL CODE Dispo - inpatient. History of Present Illness History of Present Illness Ms Clarke is a 35 year old female who presents with 1 week of shortness of breath, cough, chest pain that is a burning that is goes from her throat all the way down into her lungs. Patient rates the pain 8 out of 10. She states she is been taking [id number] Robitussin. She states she supposed to be on lisinopril but has not taken it for a year. She states she is supposed to be taking 10 mg but has been getting from her TRANSMISSION INSPECTOR and has not had an appointment in follow-up. She previously used an albuterol inhaler for asthma but she has not had one at home. Patient denies dizziness, headache, fever, nausea, vomiting, diarrhea, numbness or tingling, vision change, focal weakness, extremity swelling. After blood pressure coming down her chest pain improved but still has a headache now it is worse today. She notes some numbness and tin gling that did radiate into her left arm she cannot tell if this is due to her IV thinks it predated IV insertion Labs with WBC 13.1, Hb 10.6, platelets 442, NA 140, K3.9, BUN 10, CR 0.7, glucose 93, calcium 8.3, magnesium 1.7, LFTs normal laboratory limits, lipase 69, albumin 3.1, urinalysis bland hCG negative, rapid COVID-19 negative. Chest radiograph faint bilateral airspace disease is possible infiltrates. EKG sinus rhythm rate of 89 bpm normal axis and intervals, QTC [address] elevations or TWI Consults: Cardiology 04/22: Blood pressure consistently above 180 systolic in the 110 diastolic. Still with left arm symptoms. Echocardiogram completed with no significant abnormalities and normal ejection fraction. She is cough overnight and still with headache but removing Nitropaste to improve that headache. Discussed addition of losartan and hydrochlorothiazide to discontinue lisinopril given her cough and will try a PPI for her GERD. Will need to have her diastolic below 110 prior to discharge 04/23: Blood pressure improved systolic below 160 diastolic below 100 today. Left arm symptoms resolved she did have some lip swelling yesterday potentially related to aspirin. Remitted with Benadryl. She has some epigastric discomfort after eating a turkey sandwich last night. She does not feel 100% improved but is asking to discharge home. Discussed her blood pressure is safe for her she needs to establish primary care outpatient. Vitals/I&O Vitals/I&O: Vital Signs Date Time Temp Pulse Resp B/P (MAP) Pulse Ox O2 Delivery O2 Flow Rate FiO2 04/23/21 08:42 82 163/104 04/23/21 07:00 97.8 20 96 Room Air 97.8 I & O 04/22/21 04/22/21 04/23/21 15:00 23:00 07:00 Intake Total 240 ml 240 ml 300 ml Output Total 2600 ml Balance 240 ml 240 ml -2300 ml Physical Exam General: Alert, Oriented X3, Cooperative, No acute distress Heart: Regular rate Abdomen: Soft, Other (obese) Extremities: No edema, Normal pulses Skin: No significant lesion Labs Labs: Laboratory Tests Test 04/22/21 09:49 Troponin I High Sensitivity 29 ng/L (4-50) Assessment and Plan Assessmemt and Plan Problems Medical Problems: (1) Hypertensive emergency Status: Acute (2) Person under investigation for COVID-19 Status: Acute (3) Pneumonia Status: Acute Comment Review of Relevant I have reviewed the following items bennett (where applicable) has been applied. Medications: Current Medications Medications (Trade) Dose Ordered Sig/Edmond Route PRN Reason Start Time Stop Time Status Last Admin Dose Admin Labetalol HCl (Normodyne Iv Push) 10 mg 1X ONCE IVP 04/22/21 12:30 04/22/21 12:31 DC 04/22/21 12:20 Amlodipine Besylate (Norvasc) 5 mg 1X ONCE PO 04/22/21 12:30 04/22/21 12:32 DC 04/22/21 13:19 Hydrochlorothiazide (Hydrodiuril) 25 mg DAILY PO 04/22/21 12:30 04/23/21 08:42 Losartan Potassium (Cozaar) 50 mg DAILY PO 04/22/21 12:30 04/22/21 18:40 DC 04/22/21 13:21 Pantoprazole Sodium (Protonix) 40 mg DAILYAC PO 04/22/21 12:30 04/23/21 05:26 Losartan Potassium (Cozaar) 100 mg DAILY PO 04/23/21 09:00 04/23/21 08:42 Losartan Potassium (Cozaar) 50 mg 1X ONCE PO 04/22/21 19:00 04/22/21 19:01 DC 04/22/21 19:09 Amlodipine Besylate (Norvasc) 10 mg DAILY PO 04/23/21 09:00 04/23/21 08:42 Diphenhydramine HCl (Benadryl) 25 mg PRN Q6HRS PRN PO ITCHING 04/22/21 19:15 04/22/21 19:09 Justifications for Admission Other Justification CLIFTON BLAKE MD Apr 23, 2021 09:08
--- NOTE | 2021-04-23 09:09 | PDOC3 ---
Discharge Summary Visit Information Date of Admission: Apr 20, 2021 Date of Discharge: Apr 23, 2021 Admitting Diagnosis: Hypertensive emergency Final Diagnosis Problems Medical Problems: (1) Hypertensive emergency Status: Acute (2) Person under investigation for COVID-19 Status: Acute (3) Pneumonia Status: Acute Brief Hospital Course Allergies Allergies Coded Allergies Type Severity Reaction Last Updated Verified No Known Medication Allergies Allergy Unknown 04/22/21 Yes NSAIDS (Non-Steroidal Anti-Inflamma Adverse Reaction Intermediate 04/22/21 No Vital Signs Vital Signs Date Time Temp Pulse Resp B/P (MAP) Pulse Ox O2 Delivery O2 Flow Rate FiO2 04/23/21 08:42 82 163/104 04/23/21 07:00 97.8 20 96 Room Air 97.8 Lab Results Laboratory Tests Test 04/21/21 09:25 04/21/21 12:22 04/22/21 09:49 White Blood Count 20.5 x10^3/uL (4.0-11.0) Red Blood Count 4.79 x10^6/uL (3.50-5.40) Hemoglobin 11.0 g/dL (12.0-15.5) Hematocrit 35.1 % (36.0-47.0) Mean Corpuscular Volume 73 fL (79-100) Mean Corpuscular Hemoglobin 23 pg (25-35) Mean Corpuscular Hemoglobin Concent 31 g/dL (31-37) Red Cell Distribution Width 17.0 % (11.5-14.5) Platelet Count 506 x10^3/uL (140-400) Sodium Level 137 mmol/L (136-145) Potassium Level 3.8 mmol/L (3.5-5.1) Chloride Level 99 mmol/L (98-107) Carbon Dioxide Level 26 mmol/L (21-32) Anion Gap 12 (6-14) Blood Urea Nitrogen 14 mg/dL (7-20) Creatinine 0.9 mg/dL (0.6-1.0) Estimated GFR (Cockcroft-Gault) 86.2 Glucose Level 149 mg/dL (70-99) Calcium Level 8.6 mg/dL (8.5-10.1) Iron Level 20 ug/dL (50-170) Total Iron Binding Capacity 285 ug/dL (250-450) Iron Saturation 7 % (15-34) Thyroid Stimulating Hormone (TSH) 0.932 uIU/mL (0.358-3.74) Urine Opiates Screen Neg (NEG) Urine Methadone Screen Neg (NEG) Urine Barbiturates Neg (NEG) Urine Phencyclidine Screen Neg (NEG) Urine Amphetamine/Methamphetamine Neg (NEG) Urine Benzodiazepines Screen Neg (NEG) Urine Cocaine Screen Neg (NEG) Urine Cannabinoids Screen Neg (NEG) Urine Ethyl Alcohol Neg (NEG) Troponin I High Sensitivity 29 ng/L (4-50) Laboratory Tests Test 04/22/21 09:49 Troponin I High Sensitivity 29 ng/L (4-50) Brief Hospital Course Ms Clarke is a 35 year old female who presents with 1 week of shortness of breath, cough, chest pain that is a burning that is goes from her throat all the way down into her lungs. Patient rates the pain 8 out of 10. She states she is been taking [id number] Robitussin. She states she supposed to be on lisinopril but has not taken it for a year. She states she is supposed to be taking 10 mg but has been getting from her INTERNET ASSESSOR and has not had an appointment in follow-up. She previously used an albuterol inhaler for asthma but she has not had one at home. Patient denies dizziness, headache, fever, nausea, vomiting, diarrhea, numbness or tingling, vision change, focal weakness, extremity swelling. After blood pressure coming down her chest pain improved but still has a headache now it is worse today. She notes some numbness and tingling that did radiate into her left arm she cannot tell if this is due to her IV thinks it predated IV insertion Labs with WBC 13.1, Hb 10.6, platelets 442, NA 140, K3.9, BUN 10, CR 0.7, glucose 93, calcium 8.3, magnesium 1.7, LFTs normal laboratory limits, lipase 69, albumin 3.1, urinalysis bland hCG negative, rapid COVID-19 negative. Chest radiograph faint bilateral airspace disease is possible infiltrates. EKG sinus rhythm rate of 89 bpm normal axis and intervals, QTC [address] elevations or TWI Consults: Cardiology 04/22: Blood pressure consistently above 180 systolic in the 110 diastolic. Still with left arm symptoms. Echocardiogram completed with no significant abnormalities and normal ejection fraction. She is cough overnight and still with headache but removing Nitropaste to improve that headache. Discussed addition of losartan and hydrochlorothiazide to discontinue lisinopril given her cough and will try a PPI for her GERD. Will need to have her diastolic below 110 prior to discharge 04/23: Blood pressure improved systolic below 160 diastolic below 100 today. Left arm symptoms resolved she did have some lip swelling yesterday potentially related to aspirin. Remitted with Benadryl. She has some epigastric discomfort after eating a turkey sandwich last night. She does not feel 100% improved but is asking to discharge home. Discussed her blood pressure is safe for her she needs to establish primary care outpatient. Consults: Cardiology Problem list: Hypertensive emergency - Improved slightly with IV meds. Will add amlodipine, cont nitropaste, lisinopril Shortness of breath -with bilateral opacities concerning for pulmonary edema -> Lasix with some improvement in her shortness of breath after large urine output this could be acute diastolic CHF due to hypertensive emergency. Acute diastolic CHF - due to above. Will get echo, consult cardiology. Telemetry. When symptomatically improved will need low dose BB, ASA, statin, cont lisinopril. Cardiology consulted Hypomagnesemia - replaced Morbid obesity - counseled on lifestyle modification.. Leukocytosis - not clearly due to pneumonia given improvement in symptoms with diuresis. Likely reactive due to steroid administration Greater than 30 minutes spent on d/c home Discharge Information Condition at Discharge: Improved Follow Up: Weeks (1) Disposition/Orders: D/C to Home Scheduled Lisinopril/Hydrochlorothiazide (Lisinopril-Hctz 10-12.5 Mg Tab) 1 Each Tablet, 1 TAB PO DAILY, #30 Ref 5 Prescribed by: SAMUEL PETER D.O. on 09/01/152009 Last Action: Reviewed on 04/21/21224 by Yuval Rolon Justicifation of Admission Dx: Justifications for Admission: Justification of Admission Dx: Yes CLIFTON BLAKE MD Apr 23, 2021 09:09
[2021-04-23] MEDS ORDERED: LOSA1TAB12 PO (09:11)
[2021-04-23] MEDS ORDERED: PANT40TA77 PO (09:11)
[2021-04-23] MEDS ORDERED: AMLO-187 PO (09:11)
--- NOTE | 2021-04-23 09:57 | NUR ---
SS following up with discharge planning. SS reviewed pt chart and discussed with pt RN. Pt is currently on room air. COVID19 negative. Discharge order on the chart for home with self care.
[2021-04-23 11:00] VITALS: BP 185/110
[2021-04-23] MEDS: hydrALAZINE 20 MG/ML VIAL. IVP PRN (12:19)
[2021-04-23] MEDS ORDERED: LABETALOL HCL 100 MG TABLET. PO SCH (13:45)
[2021-04-23 14:48] VITALS: BP 157/93
[2021-04-23] MEDS ORDERED: LABE100T5 PO (15:08)
--- NOTE | 2021-04-23 16:20 | NUR ---
Discharge Note: RYNE DOS SANTOS [address] [facility] Discharge instructions and discharge home medications reviewed with Patient and a copy given. All questions have been answered and understanding verbalized. The following instructions and handouts were given: discharge instructions, med list, med/htn/bp/cp education. Discontinued lines and drains: Peripheral IV intact. Patient discharged to Home or Self Care with Family Member via Wheelchair at 1605.
== END 2021-04-23 16:15 | disposition home or self-care (01) | DRG 291 ==
LOC: ER 15:35 → ED HOLD 19:50 → 6 SOUTH 21:13
PROVIDERS: ADMIT Internal Medicine; ATTEND Internal Medicine
DX: I11.0 Hypertensive heart disease with heart failure (principal); I50.31 Acute diastolic (congestive) heart failure; I16.1 Hypertensive emergency; Z68.43 Body mass index [BMI] 50.0-59.9, adult; E66.01 Morbid (severe) obesity due to excess calories; E83.42 Hypomagnesemia; J45.909 Unspecified asthma, uncomplicated; T38.0X5A Adverse effect of glucocorticoids and synthetic analogues, initial encounter; Z20.822 Contact with and (suspected) exposure to COVID-19; Z82.49 Family history of ischemic heart disease and other diseases of the circulatory system; F41.9 Anxiety disorder, unspecified; R07.89 Other chest pain; Y92.89 Other specified places as the place of occurrence of the external cause
CPT/HCPCS: 36415; 71045; 76770; 80048; 80053; 80307; 81001; 81025; 83540; 83550; 83605; 83690; 83735; 83880; 84443; 84484; 85025; 85027; 87040; 87426; 93005; 93306; 94640; 96361; 96365; 96366; 96368; 96375; J0360; J0456; J0696; J1644; J1940; J2405; J3475; J3490; J7030; J7050; U0003; U0005; 99285-25; C8929; G0378; Q0163